=== PATIENT | male | born 1970 | race Caucasian/White ===

== ENCOUNTER 2021-01-16 03:51 | Emergency (ER) | payer SELFPAY ==
[~2021-01-16] VITALS: Ht 185.2 cm; Wt 88.4 kg
--- NOTE | 2021-01-16 04:44 | ED Chest Pain ---
General Chief Complaint: Chest Pain Stated Complaint: CP Source: patient Exam Limitations: no limitations History of Present Illness Date Seen by Provider: January 16, 2021 Time Seen by Provider: 04:25 Initial Comments Patient is a 50-year-old male who presents to the emergency department today with a chief complaint of left-sided chest pain and pressure. Patient states onset yesterday afternoon while he was riding his lawnmower mowing his lawn. He states the pain did not radiate into his neck shoulders back or left arm. He states it sat pretty much on the left side of his chest all afternoon and evening into the night. Patient states that he could not get comfortable with the chest pressure. Nothing made it any better or any worse. Patient took multiple rounds of baby aspirin throughout the evening as well as a couple of Tylenol to try and alleviate his pain. He has never had anything like this before. He denies nausea or shortness of breath associated with the pain. He denies diaphoresis. He states at the time of my evaluation the pain is almost completely alleviated. He does not have any past medical history. No family history of coronary artery disease. He denies recent illnesses such as fevers, chills cough or congestion. All other review of systems reviewed and negative except as stated above. Timing/Duration: 4-6 hours, gone now Severity/Quality: moderate Location: substernal Radiation: no radiation Activities at Onset: activity Prior CP/Workup: no prior chest pain, no prior cardiac workup ASA po BLUE[employer] C[employer]TER: Yes Associated Symptoms: denies symptoms Allergies and Home Medications Patient Home Medication List Home Medication List Reviewed: Yes Review of Systems Review of Systems Constitutional: see HPI EENTM: No Symptoms Reported Respiratory: No Symptoms Reported Cardiovascular: Chest Pain Gastrointestinal: No Symptoms Reported Genitourinary: No Symptoms Reported Musculoskeletal: no symptoms reported Skin: no symptoms reported Psychiatric/Neurological: No Symptoms Reported All Other Systems Reviewed Negative Unless Noted: Yes Physical Exam Vital Signs Capillary Refill : Height, Weight, BMI Height: '" Weight: lbs. oz. kg; BMI Method:Stated General Appearance: No Apparent Distress, WD/WN HEENT: PERRL/EOMI Neck: Normal Inspection Respiratory: Lungs Clear, Normal Breath Sounds, No Accessory Muscle Use, No Respiratory Distress Cardiovascular: Regular Rate, Rhythm, No Murmur Gastrointestinal: Normal Bowel Sounds, Non Tender, Soft Extremity: Normal Capillary Refill, Normal Inspection, Normal Range of Motion, Non Tender, No Calf Tenderness Neurologic/Psychiatric: Alert, Oriented x3, No Motor/Sensory Deficits, Normal Mood/Affect Skin: Normal Color, Warm/Dry Progress/Results/Core Measures Results/Orders Lab Results Laboratory Tests Test 01/16/21 04:01 Range/Units White Blood Count 11.5 H 4.3-11.0 10^3/uL Red Blood Count 5.13 4.30-5.52 10^6/uL Hemoglobin 14.6 13.3-17.7 g/dL Hematocrit 44 40-54 % Mean Corpuscular Volume 87 80-99 fL Mean Corpuscular Hemoglobin 29 25-34 pg Mean Corpuscular Hemoglobin Concent 33 32-36 g/dL Red Cell Distribution Width 13.0 10.0-14.5 % Platelet Count 290 130-400 10^3/uL Mean Platelet Volume 10.8 9.0-12.2 fL Immature Granulocyte % (Auto) 0 % Neutrophils (%) (Auto) 63 42-75 % Lymphocytes (%) (Auto) 17 12-44 % Monocytes (%) (Auto) 19 H 0-12 % Eosinophils (%) (Auto) 1 0-10 % Basophils (%) (Auto) 0 0-10 % Neutrophils # (Auto) 7.2 1.8-7.8 10^3/uL Lymphocytes # (Auto) 1.9 1.0-4.0 10^3/uL Monocytes # (Auto) 2.1 H 0.0-1.0 10^3/uL Eosinophils # (Auto) 0.1 0.0-0.3 10^3/uL Basophils # (Auto) 0.1 0.0-0.1 10^3/uL Immature Granulocyte # (Auto) 0.1 0.0-0.1 10^3/uL Neutrophils % (Manual) 66 % Lymphocytes % (Manual) 15 % Monocytes % (Manual) 16 % Eosinophils % (Manual) 3 % Blood Morphology Comment NORMAL Sodium Level 136 135-145 MMOL/L Potassium Level 3.9 3.6-5.0 MMOL/L Chloride Level 101 98-107 MMOL/L Carbon Dioxide Level 24 21-32 MMOL/L Anion Gap 11 5-14 MMOL/L Blood Urea Nitrogen 19 H 7-18 MG/DL Creatinine 1.24 0.60-1.30 MG/DL Estimat Glomerular Filtration Rate > 60 BUN/Creatinine Ratio 15 Glucose Level 120 H 70-105 MG/DL Calcium Level 9.4 8.5-10.1 MG/DL Total Creatine Kinase 130 30-200 U/L Creatine Kinase MB 1.1 <6.6 NG/ML Troponin I < 0.028 <0.028 NG/ML My Orders Orders - ELVI CHANEY MD Cbc With Automated Diff (01/16/21 05:07) Basic Metabolic Panel (01/16/21 05:07) Creatine Kinase (01/16/21 05:07) Creatine Kinase Mb (01/16/21 05:07) Troponin I (01/16/21 05:07) Ekg Tracing (01/16/21 05:07) Chest 1 View, Ap/Pa Only (01/16/21 05:07) Manual Differential (01/16/21 04:01) Progress Progress Note : Time: 05:35 Progress Note Patient's labs have been reviewed, CBC, chemistry and cardiac enzyme profile as well as EKG and chest x-ray. Patient had ongoing chest pain for 4 to 6 hours and his cardiac enzymes are negative. The patient has no abnormalities noted on EKG. He is low risk with his heart score secondary to no hypertension or hypercholesterolemia, non-smoker, no significant cardiac risk factors, no family history, nonsuspicious story. This places him in the very low risk category for ACS. Patient will be sent home to follow-up with his primary care physician. He is given good return precautions. He verbalizes understanding. He has no clinical or objective findings to warrant further studies from the emergency department. He is stable for discharge Initial ECG Impression Date: January 16, 2021 Initial ECG Impression Time: 04:15 Initial ECG Rate: 81 Initial ECG Rhythm: Normal Sinus Initial ECG Intervals: Normal Initial ECG Impression: Normal Initial ECG Comparisson: No Previous ECG Available Diagnostic Imaging Diagonstic Imaging: Xray Plain Films/CT/US/NM/MRI: chest Comments Chest x-ray shows no infiltrates or effusions, normal mediastinal structures, no bony abnormalities are appreciated Departure Impression Primary Impression: Chest pain Qualified Codes: R07.9 - Chest pain, unspecified Disposition: 01 HOME, SELF-CARE Condition: Stable Departure-Patient Inst. Decision time for Depature: 05:37 Referrals: NO,LOCAL PHYSICIAN (PCP/Family) Primary Care Physician Patient Instructions: Chest Pain That Is Not Caused by the Heart (DC) Add. Discharge Instructions: Drink plenty of fluids to stay well-hydrated. Follow-up with your family physician/primary care provider. Come back to the emergency room if you experience further chest pain especially pain that is associated with sweating, shortness of breath, nausea or pain that is radiating from your chest to your arms, back, neck. ELVI CHANEY MD January 16, 2021 04:44
[2021-01-16 05:13] LABS: BASOPHILS # (AUTO) 0.1 10^3/uL (0.0-0.1); BASOPHILS % (AUTO) 0 % (0-10); EOSINOPHILS # (AUTO) 0.1 10^3/uL (0.0-0.3); EOSINOPHILS % (AUTO) 1 % (0-10); HEMATOCRIT 44 % (40-54); HEMOGLOBIN 14.6 g/dL (13.3-17.7); LYMPHOCYTES # (AUTO) 1.9 10^3/uL (1.0-4.0); LYMPHOCYTES % (AUTO) 17 % (12-44); MEAN CORPUSCULAR HEMOGLOBIN 29 pg (25-34); MEAN CORPUSCULAR HGB CONC 33 g/dL (32-36); MEAN CORPUSCULAR VOLUME 87 fL (80-99); MEAN PLATELET VOLUME 10.8 fL (9.0-12.2); MONOCYTES # (AUTO) 2.1 10^3/uL (0.0-1.0); MONOCYTES % (AUTO) 19 % (0-12); NEUTROPHILS # (AUTO) 7.2 10^3/uL (1.8-7.8); NEUTROPHILS % (AUTO) 63 % (42-75); PLATELET COUNT 290 10^3/uL (130-400); WHITE BLOOD COUNT 11.5 10^3/uL (4.3-11.0)
[2021-01-16 05:17] LABS: CHLORIDE 101 MMOL/L (98-107)
[2021-01-16 05:18] LABS: POTASSIUM 3.9 MMOL/L (3.6-5.0); SODIUM 136 MMOL/L (135-145)
[2021-01-16 05:19] LABS: CALCIUM 9.4 MG/DL (8.5-10.1); GLUCOSE 120 MG/DL (70-105)
[2021-01-16 05:21] LABS: CARBON DIOXIDE 24 MMOL/L (21-32)
[2021-01-16 05:23] LABS: CREATININE SERUM 1.24 MG/DL (0.60-1.30); GFR ESTIMATED > 60
[2021-01-16 05:24] LABS: BUN/CREATININE RATIO 15
[2021-01-16 05:26] LABS: CREATINE KINASE 130 U/L (30-200)
[2021-01-16 05:27] LABS: LYMPHOCYTES % (MANUAL) 15 %; NEUTROPHILS % (MANUAL) 66 %
[2021-01-16 05:28] LABS: EOSINOPHILS % (MANUAL) 3 %; MONOCYTES % (MANUAL) 16 %; RBC MORPH NORMAL
[2021-01-16 05:32] LABS: CREATINE KINASE MB 1.1 NG/ML (<6.6)
[2021-01-16 05:46] VITALS: BP 135/90
--- NOTE | 2021-01-16 06:12 | Diagnostic Imaging Report ---
INDICATION: chest pain COMPARISON: 10/31/2009 FINDINGS: Single frontal view of the chest demonstrates normal heart size and pulmonary vascularity. The lungs are well aerated and clear. No large pleural effusion or pneumothorax is seen. The visualized osseous structures show no acute abnormalities. IMPRESSION: 1. No acute cardiopulmonary process. Dictated by: Dictated on workstation # [id number]
== END 2021-01-16 05:55 | disposition home or self-care (01) ==
LOC: EDUNIT# 03:51 → ER 03:53
DX: R07.9 Chest pain, unspecified (principal)
CPT/HCPCS: 36415; 71045; 80048; 82550; 82553; 84484; 85007; 85027; 93005

== ENCOUNTER → 2021-12-13 | Outpatient (CLI) | payer OTHER ==
[2021-12-13 11:46] LABS: BASOPHILS # (AUTO) 0.1 10^3/uL (0.0-0.1); BASOPHILS % (AUTO) 1 % (0-10); EOSINOPHILS # (AUTO) 0.4 10^3/uL (0.0-0.3); EOSINOPHILS % (AUTO) 4 % (0-10); HEMATOCRIT 46 % (40-54); HEMOGLOBIN 15.2 g/dL (13.3-17.7); LYMPHOCYTES # (AUTO) 2.2 10^3/uL (1.0-4.0); LYMPHOCYTES % (AUTO) 24 % (12-44); MEAN CORPUSCULAR HEMOGLOBIN 29 pg (25-34); MEAN CORPUSCULAR HGB CONC 33 g/dL (32-36); MEAN CORPUSCULAR VOLUME 87 fL (80-99); MEAN PLATELET VOLUME 10.6 fL (9.0-12.2); MONOCYTES # (AUTO) 0.8 10^3/uL (0.0-1.0); MONOCYTES % (AUTO) 9 % (0-12); NEUTROPHILS # (AUTO) 5.5 10^3/uL (1.8-7.8); NEUTROPHILS % (AUTO) 61 % (42-75); PLATELET COUNT 293 10^3/uL (130-400)
[2021-12-13 12:12] LABS: ALANINE AMINOTRANSFERASE 28 U/L (0-55); ALBUMIN 4.7 GM/DL (3.2-4.5); ALKALINE PHOSPHATASE 64 U/L (40-136); BILIRUBIN,TOTAL 1.3 MG/DL (0.1-1.0); BUN/CREATININE RATIO 15; CALCIUM 9.6 MG/DL (8.5-10.1); CARBON DIOXIDE 27 MMOL/L (21-32); CHLORIDE 104 MMOL/L (98-107); CHOLESTEROL 238 MG/DL (< 200); GFR ESTIMATED 74; GLUCOSE 91 MG/DL (70-105); HDL CHOLESTEROL 61 MG/DL (40-60); POTASSIUM 3.9 MMOL/L (3.6-5.0); SODIUM 142 MMOL/L (135-145); TOTAL PROTEIN 8.2 GM/DL (6.4-8.2); TRIGLYCERIDES 172 MG/DL (<150); VLDL CHOLESTEROL 34 MG/DL (5-40)
--- NOTE | 2021-12-13 13:40 | Diagnostic Imaging Report ---
INDICATION: Right nelson pain. TIME OF EXAM: 11:55 AM Frontal and lateral views of the right tibia and fibula were obtained. Alignment at the knee and ankle is normal. No stress reaction or stress fracture is identified. IMPRESSION: No acute abnormality is detected. Dictated by: Dictated on workstation # [id number]
== END ==
LOC: RAD 11:14
PROVIDERS: ATTEND Family Medicine
DX: Z00.00 Encounter for general adult medical examination without abnormal findings (principal); M79.661 Pain in right lower leg
CPT/HCPCS: 73590; 80053; 80061; 83036; 85025; G0103; 36415; 84153